=== PATIENT | female | born 1985 | race African-American/Black ===

== ENCOUNTER 2019-03-25 14:35 | Emergency (ER) | payer SELFPAY ==
[~2019-03-25] VITALS: Ht 162.6 cm; Wt 114.0 kg
[2019-03-25 14:48] VITALS: BP 163/109
== END 2019-03-25 15:11 | disposition left against medical advice (07) ==
LOC: ER 14:35
DX: I10 Essential (primary) hypertension (principal); H57.89 Other specified disorders of eye and adnexa; Z53.21 Procedure and treatment not carried out due to patient leaving prior to being seen by health care provider
CPT/HCPCS: 99281